=== PATIENT | male | born 1955 | race Caucasian/White ===

== ENCOUNTER 2025-08-02 07:33 | Day surgery (SDC) | payer OTHER ==
[~2025-08-02] VITALS: Ht 182.9 cm; Wt 98.5 kg
[2025-08-02] VITALS (8 sets, daily range): BP systolic 118–176; BP diastolic 68–99; PULSE 67–82; RESP 12–16; TEMP 98.5; O2SAT 96–98
[~2025-08-02 07:33] MED LIST: METF-438 PO; OLME-30 PO; PIOG15TA70 PO; ROSU20TA98 PO; ringers solution, lacted 1,000 ML IV SCH; simethicone 40mg/0.6ml oral drops 15ml PO ONE
[2025-08-02] MEDS ORDERED: fentaNYL/PF 50MCG/1 ML 2ML syringe ONE ×2 (09:35→09:43)
[2025-08-02] MEDS ORDERED: MIDAZolam 1 MG/ML 5ML VIAL ONE ×2 (09:35→09:43)
== END 2025-08-02 11:15 | disposition home or self-care (01) ==
LOC: GI LAB 07:33
PROVIDERS: ATTEND Internal Medicine Gastroenterology
DX: Z12.11 Encounter for screening for malignant neoplasm of colon (principal); K57.30 Diverticulosis of large intestine without perforation or abscess without bleeding; K64.8 Other hemorrhoids; E11.649 Type 2 diabetes mellitus with hypoglycemia without coma; E78.2 Mixed hyperlipidemia; E66.9 Obesity, unspecified; I10 Essential (primary) hypertension; Z86.0100 Personal history of colon polyps, unspecified; Z98.890 Other specified postprocedural states; Z82.3 Family history of stroke; Z79.84 Long term (current) use of oral hypoglycemic drugs
CPT/HCPCS: 45378; 82948; 99152; 99153; A4620; J2250; J3010; J7120; Z7512; Z7610; G0105